=== PATIENT | female | born 1990 | race Hispanic/Latino ===

== ENCOUNTER 2018-11-12 17:29 | Outpatient (CLI) | payer MEDICAID ==
[2018-11-12] MEDS ORDERED: COLACE PO PRN (17:38)
[2018-11-12] MEDS ORDERED: AMBIEN PO PRN (17:38)
[2018-11-12] MEDS ORDERED: TYLENOL PO PRN (17:38)
[2018-11-12 17:59] VITALS: BP 115/73
[2018-11-12] MEDS ORDERED: LACTATED RINGERS 1,000 ML IV SCH (18:00)
[2018-11-12 18:14] LABS: Basophils # (Auto) 0.1 K/mm3 (0.0-0.1); Basophils % (Auto) 0.6 % (0.0-1.8); Eosinophils # (Auto) 0.1 K/mm3 (0.0-0.4); Hematocrit 39.2 % (30.3-42.9); Hemoglobin 13.6 gm/dl (10.1-14.3); Lymphocytes # (Auto) 1.8 K/mm3 (1.2-5.4); Lymphocytes % (Auto) 22.4 % (13.4-35.0); Mean Corpuscular HGB Conc 35 % (30-34); Mean Corpuscular Volume 91 fl (79-97); Monocytes # (Auto) 0.6 K/mm3 (0.0-0.8); Monocytes % (Auto) 7.4 % (0.0-7.3); Platelet Count 220 K/mm3 (140-440); Red Blood Count 4.29 M/mm3 (3.65-5.03); Red Cell Distribution Width 12.7 % (13.2-15.2)
[2018-11-12 18:27] LABS: Bacteria,Urine 1+ /HPF (Negative); Bilirubin,Urine NEG (Negative); Blood,Urine MOD (Negative); Color,Urine Yellow (Yellow); Mucus,Urine FEW /HPF; Protein,Urine <15 mg/dL mg/dL (Negative); Urobilinogen,Urine < 2.0 mg/dL (<2.0)
--- NOTE | 2018-11-12 18:29 | History and Physical Report ---
History of Present Illness Date of examination: 11/12/18 Date of admission: 11/12/18 Chief complaint: SIUP at 36 weeks and 4 days gestation with IUGR. History of present illness: Patient is a 28 year old , LMP, EDC 12/06/18 who is at 36 weeks and 4 days who was sent from the office for size< date. She is a patient of [facility] who has been co-managed with [facility] for IUGR. She denies any contractions, fluid leakage or bleeding. She reports good movement. She saw [facility] on 10/29/18 and sonogram showed EFW in the 2nd percentile. rest of the report is not available. Past History Past Medical History: no pertinent history Past Surgical History: no surgical history Social history: no significant social history - Obstetrical History Expected Date of Delivery: 12/06/18 Actual Gestation: 36 Week(s) 4 Day(s) : 3 Para: 2 Number of Living Children: 2 Medications and Allergies Allergies Allergy/AdvReac Type Severity Reaction Status Date / Time ampicillin AdvReac Severe Anaphylaxis Verified 11/12/18 17:58 Penicillins AdvReac Intermediate Anaphylaxis Verified 11/12/18 17:58 Active Meds: Active Medications Acetaminophen (Tylenol) 650 mg PO Q4H PRN PRN Reason: Pain MILD(1-3)/Fever >100.5/JARQUIN Docusate Sodium (Colace) 100 mg PO Q12H PRN PRN Reason: Constipation Lactated Ringer's (Lactated Ringers) 1,000 mls @ 125 mls/hr IV DIRECT BENJY Zolpidem Tartrate (Ambien) 5 mg PO ONCE PRN PRN Reason: Sleep - Vital Signs Vital signs: Vital Signs Temp Pulse Resp BP 98.6 F 100 H 14 115/73 11/12/18 17:57 11/12/18 17:57 11/12/18 17:57 11/12/18 17:57 Temp Pulse Resp BP Pulse Ox 98.6 F 100 H 14 115/73 11/12/18 17:57 11/12/18 17:58 11/12/18 17:57 11/12/18 17:58 - Physical Exam Cardiovascular: Normal S1, Normal S2 Lungs: Positive: Clear to auscultation Vulva: both: normal Deep Tendon Reflex Grade: Normal +2 - Obstetrical FHR: category 1 Uterine Contraction Monitor Mode: External Results Result Diagrams: 11/12/18 17:46 Abnormal lab results 11/12/18 Range/Units 17:46 MCHC 35 H (30-34) % RDW 12.7 L (13.2-15.2) % [place] % (Auto) 7.4 H (0.0-7.3) % All other labs normal. Assessment and Plan - Patient Problems (1) 36 weeks gestation of Current Visit: Yes Status: Acute (2) IUGR (intrauterine growth restriction) Current Visit: Yes Status: Acute Plan to address problem: Admit to labor floor. IV hydration. Routine labs. monitoring. Sonogram for BPP, NADIR, EFW, cord doppler. [facility] consult.
--- NOTE | 2018-11-12 21:44 | Ultrasound Report ---
FINAL REPORT EXAM: US OB FOLLOW UP HISTORY: IUGR TECHNIQUE: Ultrasound obstetrical transabdominal PRIORS: None. FINDINGS: Single live intrauterine gestation present cephalic presentation. Placenta is posterior Amniotic fluid index is 10.6 centimeters within normal limits. cardiac activity present with heart rate 129 beats per minute biometric measurements were obtained Biparietal diameter 33 weeks 0 days Head circumference 36 weeks 6 days Abdominal circumference 33 weeks 3 days Femur length 34 weeks 4 days. Based on today's exam estimated gestational age is 33 weeks 5 days with estimated date of delivery December 26, 2018 Clinical age is 36 weeks 4 days. Estimated weight today's 2271 grams 5 pounds 0 ounces. IMPRESSION: Single live intrauterine gestation in cephalic presentation estimated at 33 weeks 5 days
--- NOTE | 2018-11-12 21:50 | Ultrasound Report ---
FINAL REPORT EXAM: US OB BPP WO NON-STRESS HISTORY: IUGR TECHNIQUE: Ultrasound biophysical profile PRIORS: None. FINDINGS: Single live intrauterine gestation is present with heart rate of 121 beats per minute Biophysical profile was performed respiratory motion 2 Body movement 2 tone 2 Amniotic fluid volume 2 Total 05/29 Impression Normal biophysical profile 05/29
--- NOTE | 2018-11-12 21:58 | Ultrasound Report ---
FINAL REPORT PROCEDURE: US OB VELOCIMETRY UMBILCAL ART TECHNIQUE: Real-time limited sonographic examination was performed for evaluation of size, pos ition, heartbeat, fluid volume for each fetus with image documentation (1 or more fetuses). CPT 7681 5 HISTORY: IUGR COMPARISON: No prior studies are available for comparison. FINDINGS: Umbilical artery SD ratio is 2.64. Resistive index is 0.62. IMPRESSION: Umbilical artery SD ratio is 2.64. Resistive index is 0.62.
== END 2018-11-12 21:45 | disposition home or self-care (01) ==
LOC: TRG 17:29
PROVIDERS: ATTEND Obstetrics & Gynecology
DX: O47.03 False labor before 37 completed weeks of gestation, third trimester (principal); Z3A.36 36 weeks gestation of pregnancy
CPT/HCPCS: 36415; 59025; 76816; 76819; 76820; 81001; 85025; 86850; 86900; 86901